=== PATIENT | female | born 1995 | race Caucasian/White ===

== ENCOUNTER 2017-12-23 19:14 | Emergency (ER) | payer OTHER ==
[~2017-12-23] VITALS: Ht 157.5 cm; Wt 64.9 kg
[2017-12-23 20:28] LABS: BILIRUBIN,URINE NEGATIVE (NEGATIVE); CLARITY,URINE CLEAR; COLOR,URINE YELLOW; GLUCOSE, URINE (UA) NEGATIVE (NEGATIVE); KETONES,URINE 3+ (NEGATIVE); LEUKOCYTE ESTERASE ,URINE NEGATIVE (NEGATIVE); NITRITE,URINE NEGATIVE (NEGATIVE); PH,URINE 7 (5-9); PROTEIN,URINE 2+ (NEGATIVE); UROBILINOGEN,URINE NORMAL (NORMAL)
--- NOTE | 2017-12-23 20:28 | ED General ---
General Stated Complaint: CRAMPS Source of Information: Patient Exam Limitations: No Limitations History of Present Illness Date Seen by Provider: Dec 23, 2017 Time Seen by Provider: 20:26 Initial Comments To ER with reports of diffuse abdominal cramping. She also has some associated nausea. This awakened her from sleep at 2:30 AM this morning. She began her menstrual cycle on Tuesday and ended today. She's not had any additional vaginal bleeding. She denies fevers chills or dysuria. She was seen at [facility] and had urinalysis done. Was told that it looked normal, she was given an injection of Toradol and failed to improve. She is here tonight for worsening symptoms. She's never had this before. Timing/Duration: 12-24 Hours Associated Systoms: Nausea/Vomiting Allergies and Home Medications Allergies Coded Allergies: No Known Drug Allergies (Unverified , 12/23/17) Constitutional: see HPI EENTM: see HPI Respiratory: no symptoms reported Cardiovascular: no symptoms reported Gastrointestinal: abdominal pain Genitourinary: no symptoms reported Musculoskeletal: no symptoms reported Skin: no symptoms reported Psychiatric/Neurological: No Symptoms Reported Past [id number]-[id number] Hx Patient Social History Recent Foreign Travel: No Contact w/Someone Who Travel: No Physical Exam Vital Signs Capillary Refill : General Appearance: No Apparent Distress, WD/WN Eyes: Bilateral Eye Normal Inspection, Bilateral Eye PERRL HEENT: PERRL/EOMI, TMs Normal, Normal ENT Inspection Respiratory: No Accessory Muscle Use, No Respiratory Distress Cardiovascular: Regular Rate, Rhythm, Normal Peripheral Pulses Gastrointestinal: Non Tender, Soft Extremity: Normal Capillary Refill Neurologic/Psychiatric: Alert, Oriented x3 Skin: Normal Color, Warm/Dry Progress/Results/Core Measures Suspected Sepsis SIRS Temperature: Pulse: Respiratory Rate: Laboratory Tests 12/23/17 20:39: White Blood Count 7.0 Blood Pressure / Mean: Laboratory Tests 12/23/17 20:39: Creatinine 0.80, Platelet Count 281, Total Bilirubin 0.3 Results/Orders Lab Results Laboratory Tests Test 12/23/17 19:33 12/23/17 20:39 Range/Units Urine Color YELLOW Urine Clarity CLEAR Urine pH 7 5-9 Urine Specific Prather 1.015 L 1.016-1.022 Urine Protein 2+ H NEGATIVE Urine Glucose (UA) NEGATIVE NEGATIVE Urine Ketones 3+ H NEGATIVE Urine Nitrite NEGATIVE NEGATIVE Urine Bilirubin NEGATIVE NEGATIVE Urine Urobilinogen NORMAL NORMAL MG/DL Urine Leukocyte Esterase NEGATIVE NEGATIVE Urine RBC (Auto) 3+ H NEGATIVE Urine RBC 5-10 H /HPF Urine WBC 0-2 /HPF Urine Crystals PRESENT H /LPF Urine Amorphous Sediment FEW ALEXANDRE PHOSPHATE H /LPF Urine Bacteria NONE /HPF Urine Casts NONE /LPF Urine Mucus NEGATIVE /LPF Urine Culture Indicated NO Urine Test NEGATIVE NEGATIVE White Blood Count 7.0 4.3-11.0 10^3/uL Red Blood Count 4.31 L 4.35-5.85 10^6/uL Hemoglobin 13.2 11.5-16.0 G/DL Hematocrit 38 35-52 % Mean Corpuscular Volume 88 80-99 FL Mean Corpuscular Hemoglobin 31 25-34 PG Mean Corpuscular Hemoglobin Concent 35 32-36 G/DL Red Cell Distribution Width 12.9 10.0-14.5 % Platelet Count 281 130-400 10^3/uL Mean Platelet Volume 9.9 7.4-10.4 FL Neutrophils (%) (Auto) 58 42-75 % Lymphocytes (%) (Auto) 28 12-44 % Monocytes (%) (Auto) 13 H 0-12 % Eosinophils (%) (Auto) 0 0-10 % Basophils (%) (Auto) 0 0-10 % Neutrophils # (Auto) 4.1 1.8-7.8 X 10^3 Lymphocytes # (Auto) 2.0 1.0-4.0 X 10^3 Monocytes # (Auto) 0.9 0.0-1.0 X 10^3 Eosinophils # (Auto) 0.0 0.0-0.3 10^3/uL Basophils # (Auto) 0.0 0.0-0.1 10^3/uL Sodium Level 139 135-145 MMOL/L Potassium Level 3.3 L 3.6-5.0 MMOL/L Chloride Level 108 H 98-107 MMOL/L Carbon Dioxide Level 20 L 21-32 MMOL/L Anion Gap 11 5-14 MMOL/L Blood Urea Nitrogen 10 7-18 MG/DL Creatinine 0.80 0.60-1.30 MG/DL Estimat Glomerular Filtration Rate > 60 BUN/Creatinine Ratio 13 Glucose Level 96 70-105 MG/DL Calcium Level 9.7 8.5-10.1 MG/DL Total Bilirubin 0.3 0.1-1.0 MG/DL Aspartate Amino Transf (AST/SGOT) 18 5-34 U/L Alanine Aminotransferase (ALT/SGPT) 15 0-55 U/L Alkaline Phosphatase 41 40-136 U/L Total Protein 7.0 6.4-8.2 GM/DL Albumin 3.9 3.2-4.5 GM/DL My Orders Orders - GUS KHAN TECHNICAL WRITER AND EDITOR Cbc With Automated Diff (12/23/17 20:23) Comprehensive Metabolic Panel (12/23/17 20:23) Ua Culture If Indicated (12/23/17 20:23) Urine Bedside (12/23/17 20:23) Saline Lock/Iv-Start (12/23/17 20:23) Fentanyl Injection (Sublimaze Injection (12/23/17 20:30) Ondansetron Injection (Zofran Injectio (12/23/17 20:30) Ns Iv 500 Ml (Sodium Chloride 0.9%) (12/23/17 20:30) Hyoscyamine Sl Tablet (Levsin Sl Tablet) (12/23/17 20:30) Ct Abdomen/Pelvis W (12/23/17 20:28) Hcg,Qualitative Urine (12/23/17 20:29) Iohexol Injection (Omnipaque 350 Mg/Ml 1 (12/23/17 20:45) Pharmacy Communication (Pharmacy Communi (12/23/17 20:32) Ns (Ivpb) (Sodium Chloride 0.9%) (12/23/17 20:45) Medications Given in ED Current Medications Medications Dose Ordered Sig/Frankie Route Start Time Stop Time Status Last Admin Dose Admin Fentanyl Citrate 50 mcg ONCE ONCE IVP 12/23/17 20:30 12/23/17 20:31 DC 12/23/17 20:43 50 MCG Hyoscyamine Sulfate 0.25 mg ONCE ONCE PO 12/23/17 20:30 12/23/17 20:31 DC 12/23/17 20:43 0.25 MG Iohexol 100 ml ONCE ONCE IV 12/23/17 20:45 12/23/17 20:46 DC 12/23/17 21:25 100 ML Ondansetron HCl 4 mg ONCE ONCE IVP 12/23/17 20:30 12/23/17 20:31 DC 12/23/17 20:43 4 MG Sodium Chloride 250 ml ONCE ONCE IV 12/23/17 20:45 12/23/17 20:46 DC 12/23/17 21:26 80 ML Vital Signs/I&O Capillary Refill : Diagnostic Imaging Diagonstic Imaging: CT Comments NAME: ELADIA [facility] REC#: [id number] PT STATUS: REG ER : 1995 PHYSICIAN: GUS KHAN TECHNICAL WRITER AND EDITOR ADMIT DATE: 12/23/17/ER Draft Date of Exam:12/23/17 CT ABDOMEN/PELVIS W PROCEDURE: CT abdomen and pelvis with contrast. TECHNIQUE: Multiple contiguous axial images were obtained through the abdomen and pelvis after administration of intravenous contrast. INDICATION: Low abdominal pain with nausea and emesis. FINDINGS: Incidental note is made of an approximately 0.3 cm nodule in the subpleural aspect of the left lower lobe, posteriorly. No focal hepatic or splenic abnormality is identified. No gallbladder, pancreatic or adrenal gland abnormality is seen. There is good enhancement of kidneys on dynamic phase with mild striation noted on delayed images. There is no evidence of perinephric fluid or inflammation. No free fluid is seen in the abdomen or pelvis. The appendix is not definitely visualized. There is an approximately 2.2 cm cyst in the right ovary. Partially opacified urinary bladder is unremarkable. IMPRESSION: 1. Striated appearance of the kidneys on delayed images can be related to pyelonephritis and clinical correlation is recommended. Otherwise, there is a dominant right adnexal cyst which is likely ovarian in nature. 2. Otherwise, no acute abnormality is seen. Dictated on workstation # [id number] Dict: 12/23/172139 Trans: 12/23/172151 [facility] [id number] Interpreted by: ELIA DENISE MD Electronically signed by: Departure Communication (Admissions) Progress Notes 2231- pain has recurred. I did discuss the patient that she may have an ovarian cyst that has ruptured causing this pain. Questionable inflammation around the kidneys with no other evidence to support pyelonephritis. We will discharge to home with hydrocodone # 4 to get her through the night, and appropriate her milligrams every 8 hours and return to ER for any worsening pain or fevers. Impression Impression: Primary Impression: Lower abdominal pain Disposition: 01 HOME, SELF-CARE Condition: Stable Departure-Patient Inst. Decision time for Depature: 22:34 Referrals: [facility] (PCP/Family) Primary Care Physician Patient Instructions: Acute Abdomen (Belly Pain), Adult (DC) Add. Discharge Instructions: 4 tablets every 8 hours for pain. Sabido 800 mg every 8 hours. Take the pain pills that we gave you hear one tablet every 4 hours as needed for severe pain. Return to ER for any fevers, worsening pain. Work/School Note: Work Release Form Date Seen in the Emergency Department: Dec 23, 2017 Return to Work: Dec 26, 2017 GUS KHAN APRN Dec 23, 2017 20:28
[2017-12-23] MEDS ORDERED: HYOSCYAMINE 0.125 MG (LEVSIN) TAB PO ONE (20:30)
[2017-12-23] MEDS ORDERED: fentaNYL INJECTION 100 MCG/2 ML AMP IVP ONE (20:30)
[2017-12-23] MEDS ORDERED: NS IV 500 ML 500 ML IV SCH (20:30)
[2017-12-23] MEDS ORDERED: ONDANSETRON 4 MG/2 ML (SDV) Z0FRAN IVP ONE (20:30)
[2017-12-23 20:35] LABS: AMORPHOUS SEDIMENT,UR FEW AMOR PHOSPHATE /LPF; WBC,URINE 0-2 /HPF
[2017-12-23] MEDS ORDERED: NS 250 ML (IVPB) BAG IV ONE (20:45)
[2017-12-23] MEDS ORDERED: IOHEXOL 350 MG/ML 100 ML (OMNIPAQUE 350) VIAL IV ONE (20:45)
[2017-12-23 20:50] LABS: BASOPHILS % (AUTO) 0 % (0-10); EOSINOPHILS % (AUTO) 0 % (0-10); HEMATOCRIT 38 % (35-52); HEMOGLOBIN 13.2 G/DL (11.5-16.0); LYMPHOCYTES % (AUTO) 28 % (12-44); MEAN CORPUSCULAR HEMOGLOBIN 31 PG (25-34); MEAN CORPUSCULAR HGB CONC 35 G/DL (32-36); MEAN CORPUSCULAR VOLUME 88 FL (80-99); MEAN PLATELET VOLUME 9.9 FL (7.4-10.4); MONOCYTES # (AUTO) 0.9 X 10^3 (0.0-1.0); MONOCYTES % (AUTO) 13 % (0-12); NEUTROPHILS # (AUTO) 4.1 X 10^3 (1.8-7.8); NEUTROPHILS % (AUTO) 58 % (42-75); PLATELET COUNT 281 10^3/uL (130-400); RED BLOOD COUNT 4.31 10^6/uL (4.35-5.85); RED CELL DISTRIBUTION WIDTH 12.9 % (10.0-14.5)
[2017-12-23 21:09] LABS: ALANINE AMINOTRANSFERASE 15 U/L (0-55); ALBUMIN 3.9 GM/DL (3.2-4.5); ALKALINE PHOSPHATASE 41 U/L (40-136); BILIRUBIN,TOTAL 0.3 MG/DL (0.1-1.0); BUN/CREATININE RATIO 13; CALCIUM 9.7 MG/DL (8.5-10.1); CARBON DIOXIDE 20 MMOL/L (21-32); CHLORIDE 108 MMOL/L (98-107); GFR ESTIMATED > 60; GLUCOSE 96 MG/DL (70-105); POTASSIUM 3.3 MMOL/L (3.6-5.0); SODIUM 139 MMOL/L (135-145)
--- NOTE | 2017-12-23 21:52 | Diagnostic Imaging Report ---
PROCEDURE: CT abdomen and pelvis with contrast. TECHNIQUE: Multiple contiguous axial images were obtained through the abdomen and pelvis after administration of intravenous contrast. INDICATION: Low abdominal pain with nausea and emesis. FINDINGS: Incidental note is made of an approximately 0.3 cm nodule in the subpleural aspect of the left lower lobe, posteriorly. No focal hepatic or splenic abnormality is identified. No gallbladder, pancreatic or adrenal gland abnormality is seen. There is good enhancement of kidneys on dynamic phase with mild striation noted on delayed images. There is no evidence of perinephric fluid or inflammation. No free fluid is seen in the abdomen or pelvis. The appendix is not definitely visualized. There is an approximately 2.2 cm cyst in the right ovary. Partially opacified urinary bladder is unremarkable. IMPRESSION: 1. Striated appearance of the kidneys on delayed images can be related to pyelonephritis and clinical correlation is recommended. Otherwise, there is a dominant right adnexal cyst which is likely ovarian in nature. 2. Otherwise, no acute abnormality is seen. Dictated by: Dictated on workstation # [id number]
[2017-12-23 22:44] VITALS: BP 149/91
[2017-12-23] MEDS ORDERED: RX-HYDROCODONE/APAP 5/325 MG #4 TAB PK PO PRN (22:45)
== END 2017-12-23 22:44 | disposition home or self-care (01) ==
LOC: ER 19:16
DX: R10.30 Lower abdominal pain, unspecified (principal)
CPT/HCPCS: 36415; 74177; 80053; 81000; 84703; 85025; 96374; 96375